=== PATIENT | male | born 1980 | race Caucasian/White ===

== ENCOUNTER 2018-10-12 14:22 | Emergency (ER) | payer SELFPAY ==
[~2018-10-12] VITALS: Ht 172.7 cm; Wt 85.0 kg
[2018-10-12 14:28] VITALS: Ht 172.7 cm; Wt 85.0 kg
[2018-10-12] MEDS ORDERED: ONDANSETRON 4 MG INJ IV STA (14:33)
[2018-10-12] MEDS ORDERED: SOD CHLORIDE 0.9% 1,000 ML IV STA (14:33)
[2018-10-12] MEDS ORDERED: KETOROLAC 30 MG INJ IV STA (14:53)
[2018-10-12] MEDS ORDERED: MECLIZINE 12.5 MG TAB PO ONE (15:00)
--- NOTE | 2018-10-12 15:49 | ERD ---
ER Documentation Chief Complaint Chief Complaint BIB RA FOR EVAL DIZZINESS X 7 DAYS. HPI This is a 38-year-old male with no past medical history that presents to the emergency department complaining of dizziness for the past 7 days. Indicates he was in extreme heat when the symptoms started [place] with an ambient temperature of greater than 100. He indicates he has been since then working in a very warm environment as well. Throughout the day he will feel dizzy with intermittent episodes of the room spinning around him. 2 days ago he went to an urgent care clinic and they diagnosed him with a right- sided otitis media and placed him on penicillin. He states over that his symptoms not improved. He feels a heaviness in the front of his head. He states this is not the worst headache of his life. No changes in vision. He also states that he drinks excessive caffeine and stopped 7 days ago at the onset of his symptoms. He denies any palpitations. He has no shortness of breath at rest or exertion. He said no fevers or shaking no chills no neck pain. ROS All systems reviewed and are negative except as per history of present illness. Allergies Allergies: Coded Allergies: No Known Allergy (Unverified , 10/12/18) PMhx/Soc History of Surgery: Yes (esophogeal sx, knee sx) Anesthesia Reaction: No Hx Neurological Disorder: Yes (vertigo) Hx Respiratory Disorders: No Hx Cardiac Disorders: No Hx Psychiatric Problems: No Hx Miscellaneous Medical Probl: Yes (esophageal web) Hx Alcohol Use: No Hx Substance Use: No Hx Tobacco Use: No Smoking Status: Never smoker Physical Exam Vitals Vital Signs Date Temp Pulse Resp B/P (MAP) Pulse Ox O2 O2 Flow FiO2 Time Delivery Rate 10/12/18 98.5 90 16 136/83 99 14:28 (100) Physical Exam Constitutional:Well-developed. Well-nourished. HEENT:Normocephalic. Atraumatic.Pupils were equal round reactive to light. Dry mucous membranes.No tonsillar exudates. Funduscopy exam shows sharp optic disks and venous pulsations were present. Neck: No nuchal rigidity. No lymphadenopathy. No posterior cervical spine tenderness or step-offs. Respiratory: Not using accessory muscles of respiration.Lungs were clear to auscultation bilaterally. No rhonchi. No rales. No wheezing. Cardiovascular: Regular rate regular rhythm.No murmurs. No rubs were appreciated.S1, S2 normal. Distal pulses are palpable 2+ bilaterally. GI: Abdomen was soft. Nontender. Non Distended. No pulsatile abdominal masses or bruits. No rebound. No guarding. Bowel sounds were present and normal. Muscle skeletal: Full range of motion of both the upper and lower extremities bilaterally.Normal muscle tone.No assymetrical calf tenderness or swelling. Skin: No petechia, no purpura. No lesions on the palms or the soles of the feet. No maculopapular rash. NEURO: Patient was alert, awake, orientated x3.No facial droop. Gait observed and normal with no ataxia.Speech had regular rate and rhythm. No focal neurological deficits. Result Diagram: 10/12/18 1500 10/12/18 1500 Results 24 hrs Laboratory Tests Test 10/12/18 15:00 White Blood Count 7.0 10^3/ul Red Blood Count 4.74 10^6/ul Hemoglobin 13.7 g/dl Hematocrit 40.8 % Mean Corpuscular Volume 86.1 fl Mean Corpuscular Hemoglobin 28.9 pg Mean Corpuscular Hemoglobin Concent 33.6 g/dl Red Cell Distribution Width 12.1 % Platelet Count 244 10^3/UL Mean Platelet Volume 9.7 fl Immature Granulocytes % 0.300 % Neutrophils % 55.1 % Lymphocytes % 31.5 % Monocytes % 8.4 % Eosinophils % 4.1 % Basophils % 0.6 % Nucleated Red Blood Cells % 0.0 /100WBC Immature Granulocytes # 0.020 10^3/ul Neutrophils # 3.9 10^3/ul Lymphocytes # 2.2 10^3/ul Monocytes # 0.6 10^3/ul Eosinophils # 0.3 10^3/ul Basophils # 0.0 10^3/ul Nucleated Red Blood Cells # 0.0 10^3/ul Prothrombin Time 13.7 Sec Prothrombin Time Ratio 1.1 INR International Normalized Ratio 1.04 Activated Partial Thromboplast Time 29.3 Sec Sodium Level 136 mmol/L Potassium Level 3.7 mmol/L Chloride Level 99 mmol/L Carbon Dioxide Level 25 mmol/L Anion Gap 12 Blood Urea Nitrogen 9 mg/dl Creatinine 0.81 mg/dl Est Glomerular Filtrat Rate mL/min > 60 mL/min Glucose Level 100 mg/dl Calcium Level 9.6 mg/dl Total Bilirubin 1.2 mg/dl Direct Bilirubin 0.00 mg/dl Indirect Bilirubin 1.2 mg/dl Aspartate Amino Transf (AST/SGOT) 28 IU/L Alanine Aminotransferase (ALT/SGPT) 22 IU/L Alkaline Phosphatase 49 IU/L Troponin I < 0.012 ng/ml Total Protein 7.5 g/dl Albumin 4.4 g/dl Globulin 3.10 g/dl Albumin/Globulin Ratio 1.41 Amylase Level 98 U/L Lipase 144 U/L Current Medications Medications Dose Sig/Tatiana Start Time Status Last (Trade) Ordered Route PRN Stop Time Admin Dose Reason Admin Sodium 1,000 ml @ Q1H STAT 10/12/18 DC 10/12/18 Chloride 1,000 mls/hr IV 14:33 15:23 10/12/18 15:32 Ondansetron 4 mg ONCE STAT 10/12/18 DC 10/12/18 HCl (Zofran IV 14:33 15:23 Inj) 10/12/18 14:37 Meclizine 25 mg ONCE ONCE 10/12/18 Cancel HCl PO 15:00 (Antivert) 10/12/18 15:01 Ketorolac 30 mg ONCE STAT 10/12/18 DC 10/12/18 Tromethamine IV 14:53 15:36 (Toradol) 10/12/18 14:54 Procedures/MDM This patient was seen and evaluated by myself. The patient presented to the emergency department complaining of dizziness. My differential diagnosis included but was not limited to hypovolemia, myocardial infarction, pulmonary embolism, hypoglycemia, hypoxia, anemia, vasovagal episode, hypothyroidism, anxiety, peripheral or central vertigo. The patient was placed on a ekg monitor, continuous pulse oximetry and IV access established by nursing staff. The patient was given a liter bolus of normal saline. He was also given Zofran. He had taken Antivert at home with no improvement of his symptoms. He was given IV Toradol after the CT scan of his head showed no intracerebral hemorrhage mass-effect or midline shift. Patient no severe left light abnormalities. There is no focal neurological deficits to suggest a cerebrovascular accident. I did feel that this could be exacerbated by heat exhaustion. 12 Lead EKG tracing ordered and reviewed by myself showed: Normal sinus rhythm of 85 bpm and no arrhythmia. SD interval normal. QRS duration normal. No ST segment elevation No ST segment depression. No changes consistent with acute ischemia. The patient was discharged home in fair condition. They were instructed to return to the emergency department at any time if there was any worsening of their condition. The patient stated they would follow up with their PCP in the next 24-48 hours to initiate a suitable medication regimen under the care of their PCP as well as to allow their PCP to monitor any drug reactions. The patient was discharged home with prescriptions after they gave informed consent to the new medication. They were also fully informed by myself on the adverse effects and adverse drug interactions in order to provide adequate safeguards to prevent possible adverse reactions to medications. Departure Diagnosis: Primary Impression: Dizziness Additional Impression: Heat exhaustion Encounter type: initial encounter Qualified Codes: T67.5XXA - Heat exhaustion, unspecified, initial encounter Condition: JAYDEN Arevalo MD Oct 12, 2018 15:49
[2018-10-12] MEDS ORDERED: ONDA4TAB14 PO (16:19)
[2018-10-12 16:49] VITALS: BP 120/87; PULSE 70; RESP 18
== END 2018-10-12 17:21 | disposition home or self-care (01) ==
LOC: E/R 14:22
DX: T67.5XXA Heat exhaustion, unspecified, initial encounter (principal)
CPT/HCPCS: 70450; 80053; 81003; 82150; 83690; 84484; 85025; 85610; 85730; 87086; 93005; 96374; 96375; 99285; J1885; J2405; J7030